=== PATIENT | female | born 1945 | race Two or more races ===

== ENCOUNTER 2021-07-19 13:06 | Emergency (ER) | payer OTHER ==
[~2021-07-19] VITALS: Ht 152.4 cm; Wt 69.9 kg
== END 2021-07-19 16:28 | disposition home or self-care (01) ==
LOC: ER 13:06
DX: S01.82XA Laceration with foreign body of other part of head, initial encounter (principal); W18.09XA Striking against other object with subsequent fall, initial encounter; Y93.89 Activity, other specified; Y92.098 Other place in other non-institutional residence as the place of occurrence of the external cause; Y99.8 Other external cause status

== ENCOUNTER 2021-07-25 10:25 | Emergency (ER) | payer OTHER ==
[~2021-07-25] VITALS: Ht 152.4 cm; Wt 69.9 kg
[2021-07-25] MEDS ORDERED: NORVASC5 MG PO (10:40)
[2021-07-25] MEDS ORDERED: HYDRODIURIL12.5 MG PO (10:40)
== END 2021-07-25 12:09 | disposition home or self-care (01) ==
LOC: ER 10:25
DX: Z48.02 Encounter for removal of sutures (principal)